=== PATIENT | female | born 1995 | race Caucasian/White ===

== ENCOUNTER 2017-10-15 19:19 | Emergency (ER) | payer OTHER ==
[~2017-10-15] VITALS: Ht 172.7 cm; Wt 94.4 kg
[~2017-10-15 19:19] MED LIST: PRLSR20 PO
[2017-10-15 19:49] VITALS: TEMP 36.8; Ht 172.7 cm; Wt 94.4 kg
[2017-10-15] MEDS ORDERED: DIPHTHERIA/TETANUS/PERTUSSIS 0.5 ML SYR/VIAL IM. ONE (20:15)
[2017-10-15] MEDS ORDERED: BACITRACIN OINT 15 GM TUBE EXT ONE (20:15)
[2017-10-15 20:31] VITALS: BP 121/70; PULSE 77; O2SAT 97
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
== END 2017-10-15 20:31 | disposition home or self-care (01) ==
LOC: C.EDB 19:21 → C.EDD 20:31
DX: T23.212A Burn of second degree of left thumb (nail), initial encounter (principal); X02.0XXA Exposure to flames in controlled fire in building or structure, initial encounter; K21.9 Gastro-esophageal reflux disease without esophagitis; Z79.899 Other long term (current) drug therapy; Z23 Encounter for immunization

== ENCOUNTER → 2017-11-07 | Outpatient (CLI) | payer OTHER ==
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
== END | disposition home or self-care (01) ==
LOC: C.MRI 13:40
PROVIDERS: ATTEND Internal Medicine
DX: M79.673 Pain in unspecified foot (principal)